=== PATIENT | male | born 1995 | race Caucasian/White ===

== ENCOUNTER 2017-06-09 08:21 | Emergency (ER) | payer BC ==
[~2017-06-09] VITALS: Ht 177.8 cm; Wt 81.5 kg
[2017-06-09 08:36] VITALS: BP 141/81; PULSE 82; RESP 16; TEMP 98.4; O2SAT 98
[2017-06-09] MEDS ORDERED: IBUPROFEN 800 MG TAB PO ONE (09:00)
--- NOTE | 2017-06-09 09:20 | RADRPT ---
EXAM DATE/TIME: 06/09/2017 09:02 [place] COMPARISON: No previous studies available for comparison. INDICATIONS : Left knee pain. Patient heard a pop noise and became really painful last night. MEDICAL HISTORY : None. SURGICAL HISTORY : None. ENCOUNTER: Initial ACUITY: 2 days PAIN SCORE: 10/10 LOCATION: Left knee. FINDINGS: Four view examination of the left knee demonstrates no evidence of fracture or dislocation. Bony min eralization is normal. The articular surfaces are intact. A small joint effusion. Soft tissues are u nremarkable. CONCLUSION: Small joint effusion. Maninder Mallory Jr., MD on June 09, 2017 at 9:18 Board Certified Radiologist. This report was verified electronically.
[2017-06-09] MEDS ORDERED: IBUP1TAB7 PO (09:24)
--- NOTE | 2017-06-09 09:25 | PD ---
HPI Chief Complaint: Injury Time Seen by Provider: 08:55 Travel History International Travel<30 days: No Contact w/Intl Traveler<30days: No Traveled to known affect area: No History of Present Illness HPI 22-year-old male presents to the emergency Department with complaint of left knee pain and swelling after hearing a "pop" last night while wrestling. He has been walking on it but has increased pain with walking. Denies paresthesias , loss of sensation to the affected extremity. Pain is worse with complete extension of the knee. Better with flexion. Pain is to the medial aspect. Has not taken any medications or drainage to alleviate his symptoms. Rates pain 8/10. Describes it as a throbbing and pressure. No primary care provider. He is here on vacation. No known allergies. Denies significant past medical history. Has no other medical complaints. No other modifying factors or associated signs and symptoms. PFSH Social History Tobacco Use: No Allergies-Medications (Allergen,Severity, Reaction): Coded Allergies: No Known Allergies (Unverified , 06/09/17) Reported Meds & Prescriptions Reported Meds & Active Scripts Active Tramadol (Tramadol HCl) 50 Mg Tab 50 Mg PO Q4H PRN Ibuprofen 800 Mg Tab 800 Mg PO Q6HR PRN Review of Systems Except as stated in HPI: all other systems reviewed are Neg Physical Exam Narrative GENERAL: Well-nourished, well-developed male patient, in no acute distress; afebrile, nontoxic-appearing SKIN: Warm and dry. HEAD: Atraumatic. Normocephalic. EYES: Pupils equal and round. No scleral icterus. No injection or drainage. ENT: Mucosa pink and moist. Airway patent. NECK: Trachea midline. CARDIOVASCULAR: Regular rate. RESPIRATORY: No accessory muscle use. MUSCULOSKELETAL: Left knee edematous, nonerythematous, and without ecchymosis; tenderness of the patient to the medial aspect; full range of motion and flexion to 90; able to straighten knee entirely but with pain; joiint stable with negative drawer test; no obvious deformity. Left Lower extremity is supple and non-tense with 2+ pedal pulse and sensory intact and without erythema or edema. Ambulatory in room with a limp to the left lower extremity. NEUROLOGICAL: Awake and alert. Oriented 3. No obvious cranial nerve deficits. Motor grossly within normal limits. Normal speech. PSYCHIATRIC: Appropriate mood and affect; insight and judgment normal. Data Data Last Documented VS Vital Signs Date Time Temp Pulse Resp B/P (MAP) Pulse Ox O2 Delivery O2 Flow Rate FiO2 06/09/17 08:36 98.4 82 16 141/81 (101) 98 Orders Orders Knee, Complete (4vws) (06/09/17 08:52) Ibuprofen (Motrin) (06/09/17 09:00) Ice/Cold Pack (06/09/17 08:52) Crutches (06/09/17 08:52) Canvas Knee Splint (Cks) (06/09/17 ) Ed Discharge Order (06/09/17 09:25) MDM Medical Decision Making Medical Screen Exam Complete: Yes Emergency Medical Condition: Yes Medical Record Reviewed: Yes Differential Diagnosis Knee strain, meniscal tear, effusion, fracture, dislocation Narrative Course 22-year-old male with left knee injury. Ibuprofen, left knee x-ray ordered. 0922: Left knee x-ray concludes: Small joint effusion. Patient provided a copy of the x-ray report. Canvas knee splint and crutches provided for support. Ibuprofen and tramadol prescribed for home. Instructed patient to follow up with orthopedic surgeon. Instructed patient to follow up with primary care provider. Patient verbalizes understanding and agreement with treatment plan. Patient is medically cleared and stable for discharge. Discussed reasons to return to the emergency department. Patient agrees with treatment plan. The patients vital signs are stable and the patient is stable for outpatient follow-up and treatment. Patient discharged home, stable and in no acute distress. Diagnosis Primary Impression: Left knee injury Qualified Codes: S89.92XA - Unspecified injury of left lower leg, initial encounter Additional Impression: Effusion, left knee Referrals: Orthopaedic Surgeon Primary Care Physician Patient Instructions: Crutch Instructions (ED), General Instructions, Knee Sprain (ED) Additional Instructions: Tylenol or ibuprofen as needed and as directed to reduce pain and inflammation Rest, ice, compress, and elevate extremity to decrease pain and inflammation Knee brace for support Crutches for support Avoid aggravating activity; increase activity as tolerated Follow-up with primary care provider Follow-up with orthopedics Return to the emergency department immediately with worsening symptoms Med/Other Pt SpecificInfo: Prescription(s) given Scripts Tramadol (Tramadol) 50 Mg Tab 50 MG PO Q4H Y for PAIN, #10 TAB 0 Refills Prov: Opal Vega 06/09/17 Ibuprofen (Ibuprofen) 800 Mg Tab 800 MG PO Q6HR Y for PAIN, #30 TAB 0 Refills Prov: Opal eVga 06/09/17 Disposition: 01 DISCHARGE HOME Condition: Stable Opal Vega Jun 09, 2017 09:24
[2017-06-09] MEDS ORDERED: TRAM50TA PO (09:30)
== END 2017-06-09 10:06 | disposition home or self-care (01) ==
LOC: NEPD 08:21
DX: S89.92XA Unspecified injury of left lower leg, initial encounter (principal); M25.462 Effusion, left knee; Y93.72 Activity, wrestling
CPT/HCPCS: 73564; 99283; E0113; L1830